=== PATIENT | female | born 1985 | race Caucasian/White ===

== ENCOUNTER 2017-07-27 17:06 | Emergency (ER) | payer MEDICAID ==
[~2017-07-27] VITALS: Ht 160 cm; Wt 65.5 kg
[~2017-07-27 17:06] MED LIST: CYMBALTA 30MG30 MG PO; NIX CREME RINSE60 M1 TP; PAXIL 30MG30 MG PO
[2017-07-27 17:16] VITALS: BP 138/86; TEMP 98.2
[2017-07-27 18:05] LABS: COLLECTION METHOD CLEAN CATCH
[2017-07-27 18:25] LABS: PH 6 (5-8); URINE APPEARANCE Hazy; URINE BACTERIA Rare /hpf; URINE BILIRUBIN Negative (NEGATIVE); URINE BLOOD 3+ (NEGATIVE); URINE COLOR Straw; URINE GLUCOSE Negative (NEGATIVE); URINE KETONE Negative (NEGATIVE); URINE LEUKOCYTE ESTERASE Negative (NEGATIVE); URINE PROTEIN(semi-quant) Negative (NEGATIVE); URINE RBC 0-2 /hpf; URINE UROBILINOGEN Negative (NEGATIVE); URINE WBC 0-2 /hpf
[2017-07-27 19:23] LABS: BASO % 0.3 % (0.0-2.0); EOS # 0.7 (0.0-0.7); EOS % 5.3 % (0-4.0); GRAN # 8.3 (1.4-6.5); GRAN % 60.4 % (42.2-75.2); HEMATOCRIT 41.2 % (37.0-47.0); HEMOGLOBIN 13.2 g/dl (12.5-16.0); LYMPH # 3.5 (1.2-3.4); LYMPH % 25.7 % (20.0-51.0); MEAN CELL VOLUME 90 fl (80.0-100.0); MEAN CORPUSCULAR HEMOGLOBIN 29 pg (27.0-31.0); MEAN CORPUSCULAR HGB CONC 32 g/dl (33.0-37.0); MEAN PLATELET VOLUME 10.3 fl (7.4-10.4); MONO # 1.1 (0.1-0.6); MONO % 7.7 % (1.7-9.3); PLATELET COUNT 274 K/mm3 (130-400); RED BLOOD COUNT 4.59 M/mm3 (4.10-5.30); WHITE BLOOD COUNT 13.8 K/mm3 (4.8-10.8)
[2017-07-27 19:31] LABS: ALANINE AMINOTRANSFERASE 19 U/L (9-52); ALBUMIN 4.4 gm/dL (3.5-5.0); ALKALINE PHOSPHATASE 70 U/L (50-136); ANION GAP 11 mmol/L (7-16); BILIRUBIN,TOTAL 0.5 mg/dL (0.0-1.0); BLOOD UREA NITROGEN 11 mg/dL (7-17); CALCIUM 9.3 mg/dL (8.4-10.2); CARBON DIOXIDE 23 mmol/L (22-30); CHLORIDE 103 mmol/L (98-107); CREATININE, serum 0.65 mg/dL (0.52-1.25); GLUCOSE 74 mg/dL (74-106); POTASSIUM 3.9 mmol/L (3.4-5.0); SODIUM 138 mmol/L (137-145); TOTAL PROTEIN 7.8 gm/dL (6.4-8.2)
[2017-07-27 19:34] LABS: C-REACTIVE PROTEIN < 0.5 mg/dL (0.0-0.9)
[2017-07-27] MEDS ORDERED: CEFTIN 250250 MG/TAB PO (20:16)
[2017-07-27] MEDS ORDERED: NORCO 325 MG-51 TAB PO (20:16)
[2017-07-27] MEDS ORDERED: PYRIDIUM200 M1 PO (20:16)
[2017-07-27 20:25] VITALS: PULSE 82
== END 2017-07-27 20:25 | disposition home or self-care (01) ==
LOC: COL.ER 17:06
PROVIDERS: Physician Assistant
DX: R10.32 Left lower quadrant pain (principal); R31.9 Hematuria, unspecified; Z87.442 Personal history of urinary calculi; R63.0 Anorexia
CPT/HCPCS: J0696; J1885; J7030

== ENCOUNTER 2018-07-31 13:51 | Emergency (ER) | payer MEDICAID ==
[~2018-07-31] VITALS: Ht 160 cm; Wt 61.4 kg
[~2018-07-31 13:51] MED LIST changes: +CEFTIN 250250 MG/TAB PO; +NORCO 325 MG-51 TAB PO; +PYRIDIUM200 M1 PO
[2018-07-31 13:53] VITALS: TEMP 98.7
[2018-07-31] MEDS ORDERED: TYLENOL 500MG500 MG PO (14:01)
[2018-07-31] MEDS ORDERED: ADVIL200 MG PO (14:01)
[2018-07-31] MEDS ORDERED: MULTIPLE VITAMI1 TA5 PO (14:02)
[2018-07-31 14:27] LABS: BASO % 0.2 % (0.0-2.0); EOS # 0.3 (0.0-0.7); EOS % 3.1 % (0-4.0); GRAN # 6.8 (1.4-6.5); GRAN % 64.3 % (42.2-75.2); HEMATOCRIT 37.6 % (37.0-47.0); LYMPH # 2.5 (1.2-3.4); LYMPH % 23.1 % (20.0-51.0); MEAN CELL VOLUME 87 fl (80.0-100.0); MEAN CORPUSCULAR HEMOGLOBIN 28 pg (27.0-31.0); MEAN CORPUSCULAR HGB CONC 32 g/dl (33.0-37.0); MEAN PLATELET VOLUME 10.4 fl (7.4-10.4); MONO # 0.9 (0.1-0.6); MONO % 8.9 % (1.7-9.3); PLATELET COUNT 298 K/mm3 (130-400); RED BLOOD COUNT 4.33 M/mm3 (4.10-5.30); REDCELL DISTRIBUTION WIDTH-CV 14.9 % (11.5-14.5)
[2018-07-31 14:40] LABS: ALBUMIN 3.7 gm/dL (3.5-5.0); BILIRUBIN,TOTAL 0.5 mg/dL (0.0-1.0); C-REACTIVE PROTEIN 0.6 mg/dL (0.0-0.9); CALCIUM 8.9 mg/dL (8.4-10.2); CREATININE, serum 0.54 mg/dL (0.52-1.25); POTASSIUM 3.8 mmol/L (3.4-5.0); TOTAL PROTEIN 6.5 gm/dL (6.4-8.2)
[2018-07-31 15:27] LABS: COLLECTION METHOD CLEAN CATCH
[2018-07-31 15:33] LABS: MUCOUS Present /lpf; PH 7 (5-8); URINE APPEARANCE Hazy; URINE BACTERIA Rare /hpf; URINE BILIRUBIN Negative (NEGATIVE); URINE BLOOD Negative (NEGATIVE); URINE COLOR Yellow; URINE GLUCOSE Negative (NEGATIVE); URINE KETONE Trace (NEGATIVE); URINE LEUKOCYTE ESTERASE Negative (NEGATIVE); URINE NITRATE Negative (NEGATIVE); URINE PROTEIN(semi-quant) 1+ (NEGATIVE); URINE RBC 0-2 /hpf
[2018-07-31 15:52] VITALS: BP 121/73; PULSE 71
== END 2018-07-31 16:08 | disposition home or self-care (01) ==
LOC: COL.ER 13:51
PROVIDERS: Physician Assistant
DX: R51 Headache (principal); N18.9 Chronic kidney disease, unspecified; M79.7 Fibromyalgia; F17.210 Nicotine dependence, cigarettes, uncomplicated; Z98.890 Other specified postprocedural states; Z98.51 Tubal ligation status
CPT/HCPCS: J1170; J2405; J7030

== ENCOUNTER → 2018-09-08 | Outpatient (CLI) | payer MEDICAID ==
[~2018-09-08] MED LIST changes: +ADVIL200 MG PO; +MULTIPLE VITAMI1 TA5 PO; +TYLENOL 500MG500 MG PO
== END ==
LOC: ZCOL.LAB 10:20
DX: M62.81 Muscle weakness (generalized) (principal)

== ENCOUNTER 2019-01-26 14:49 | Emergency (ER) | payer MEDICAID ==
[~2019-01-26] VITALS: Ht 160 cm; Wt 61.4 kg
[2019-01-26 15:04] VITALS: TEMP 98.7
[2019-01-26] MEDS ORDERED: CYMBALTA 30MG30 MG PO (15:18)
[2019-01-26] MEDS ORDERED: CHANTIX 1MG1 MG PO (15:18)
[2019-01-26 15:50] LABS: COLLECTION METHOD CLEAN CATCH
[2019-01-26 16:00] LABS: BASO % 0.3 % (0.0-2.0); EOS # 0.3 (0.0-0.7); EOS % 2.9 % (0-4.0); GRAN # 6.7 (1.4-6.5); GRAN % 61.5 % (42.2-75.2); HEMATOCRIT 37.9 % (37.0-47.0); HEMOGLOBIN 12.5 g/dl (12.5-16.0); LYMPH # 2.8 (1.2-3.4); LYMPH % 25.9 % (20.0-51.0); MEAN CELL VOLUME 87 fl (80.0-100.0); MEAN CORPUSCULAR HEMOGLOBIN 29 pg (27.0-31.0); MEAN CORPUSCULAR HGB CONC 33 g/dl (33.0-37.0); MEAN PLATELET VOLUME 10.4 fl (7.4-10.4); PLATELET COUNT 275 K/mm3 (130-400); RED BLOOD COUNT 4.38 M/mm3 (4.10-5.30); REDCELL DISTRIBUTION WIDTH-CV 13.5 % (11.5-14.5)
[2019-01-26 16:04] LABS: PH 6 (5-8); SQUAMOUS EPITHELIAL 0-2 /hpf; URINE APPEARANCE Clear; URINE BACTERIA None Seen /hpf; URINE BILIRUBIN Negative (NEGATIVE); URINE BLOOD Negative (NEGATIVE); URINE COLOR Straw; URINE GLUCOSE Negative (NEGATIVE); URINE KETONE Negative (NEGATIVE); URINE LEUKOCYTE ESTERASE Negative (NEGATIVE); URINE NITRATE Negative (NEGATIVE); URINE PROTEIN(semi-quant) Negative (NEGATIVE); URINE RBC 0-2 /hpf; URINE UROBILINOGEN Negative (NEGATIVE)
[2019-01-26 16:08] LABS: ALANINE AMINOTRANSFERASE 9 U/L (9-52); ALBUMIN 4.3 gm/dL (3.5-5.0); ALKALINE PHOSPHATASE 66 U/L (50-136); ANION GAP 9 mmol/L (7-16); AST,SGOT 21 U/L (15-37); BILIRUBIN,TOTAL 0.2 mg/dL (0.0-1.0); BLOOD UREA NITROGEN 8 mg/dL (7-17); C-REACTIVE PROTEIN 0.6 mg/dL (0.0-0.9); CALCIUM 9.4 mg/dL (8.4-10.2); CARBON DIOXIDE 25 mmol/L (22-30); CHLORIDE 105 mmol/L (98-107); CREATININE, serum 0.55 (0.52-1.25); GLUCOSE 84 mg/dL (74-106); SODIUM 139 mmol/L (137-145); TOTAL PROTEIN 7.6 gm/dL (6.4-8.2)
[2019-01-26 16:17] LABS: TROPONIN-I < 0.012 ng/mL (0.000-0.035)
[2019-01-26 16:28] LABS: ERYTHROCYTE SEDIMENTATION RATE 7 mm/hr (0-20)
[2019-01-26 17:55] VITALS: BP 161/90; PULSE 70
== END 2019-01-26 17:57 | disposition home or self-care (01) ==
LOC: COL.ER 14:49
PROVIDERS: Emergency Medicine
DX: M54.5 Low back pain (principal); R32 Unspecified urinary incontinence; I10 Essential (primary) hypertension; G89.29 Other chronic pain; F17.210 Nicotine dependence, cigarettes, uncomplicated; M79.7 Fibromyalgia

== ENCOUNTER 2019-02-08 13:45 | Outpatient (RCR) | payer MEDICAID ==
[~2019-02-08 13:45] MED LIST changes: +CHANTIX 1MG1 MG PO
== END 2019-02-13 | disposition home or self-care (01) ==
LOC: MKS.ESL.PT
DX: M54.5 Low back pain (principal); M54.2 Cervicalgia; G89.29 Other chronic pain

== ENCOUNTER 2019-05-15 19:58 | Emergency (ER) | payer MEDICAID ==
[~2019-05-15] VITALS: Ht 160 cm; Wt 56.4 kg
[2019-05-15 20:00] VITALS: BP 180/117; PULSE 139; TEMP 97.9
== END 2019-05-15 20:32 | disposition left against medical advice (07) ==
LOC: COL.ER 19:58
DX: F29 Unspecified psychosis not due to a substance or known physiological condition (principal); M79.7 Fibromyalgia

== ENCOUNTER 2019-05-16 01:58 | Emergency (ER) | payer MEDICAID ==
[~2019-05-16] VITALS: Ht 154.9 cm; Wt 63.6 kg
[2019-05-16 02:09] VITALS: TEMP 97.8
[2019-05-16 02:25] LABS: COLLECTION METHOD CLEAN CATCH
[2019-05-16 02:34] LABS: MUCOUS Present /lpf; PH 6 (5-8); SQUAMOUS EPITHELIAL 20-50 /hpf; URINE APPEARANCE Cloudy; URINE BACTERIA Rare /hpf; URINE BILIRUBIN Negative (NEGATIVE); URINE BLOOD Negative (NEGATIVE); URINE COLOR Yellow; URINE GLUCOSE Negative (NEGATIVE); URINE KETONE 1+ (NEGATIVE); URINE LEUKOCYTE ESTERASE Negative (NEGATIVE); URINE NITRATE Negative (NEGATIVE); URINE PROTEIN(semi-quant) 1+ (NEGATIVE); URINE UROBILINOGEN Negative (NEGATIVE)
[2019-05-16 02:39] LABS: TRICYCLIC ANTIDEPRESS URINE NEGATIVE
[2019-05-16 02:40] LABS: BASO % 0.2 % (0.0-2.0); EOS # 0.1 (0.0-0.7); EOS % 0.4 % (0-4.0); GRAN # 8.8 (1.4-6.5); GRAN % 77.9 % (42.2-75.2); HEMOGLOBIN 12.1 g/dl (12.5-16.0); LYMPH # 1.4 (1.2-3.4); LYMPH % 12.3 % (20.0-51.0); MEAN CELL VOLUME 85 fl (80.0-100.0); MEAN CORPUSCULAR HEMOGLOBIN 28 pg (27.0-31.0); MEAN CORPUSCULAR HGB CONC 33 g/dl (33.0-37.0); MEAN PLATELET VOLUME 10.3 fl (7.4-10.4); MONO % 8.8 % (1.7-9.3); PLATELET COUNT 310 K/mm3 (130-400); RED BLOOD COUNT 4.34 M/mm3 (4.10-5.30); REDCELL DISTRIBUTION WIDTH-CV 14.6 % (11.5-14.5)
[2019-05-16 02:51] LABS: ALANINE AMINOTRANSFERASE 10 U/L (9-52); ALBUMIN 4.5 gm/dL (3.5-5.0); ALKALINE PHOSPHATASE 70 U/L (50-136); ANION GAP 11 mmol/L (7-16); AST,SGOT 20 U/L (15-37); BILIRUBIN,TOTAL 0.6 mg/dL (0.0-1.0); BLOOD UREA NITROGEN 10 mg/dL (7-17); CALCIUM 9.6 mg/dL (8.4-10.2); CARBON DIOXIDE 24 mmol/L (22-30); CHLORIDE 106 mmol/L (98-107); CREATININE, serum 0.52 (0.52-1.25); GLUCOSE 108 mg/dL (74-106); POTASSIUM 3.8 mmol/L (3.4-5.0); SODIUM 140 mmol/L (137-145); TOTAL PROTEIN 7.7 gm/dL (6.4-8.2)
[2019-05-16 02:56] LABS: ACETAMINOPHEN < 10 ug/mL (10-30); ALCOHOL(ethanol),MEDICAL < 10 mg/dL; SALICYLATE < 1.0 mg/dL
[2019-05-16 03:20] LABS: TSH w REFLEX 0.919 uIU/mL (0.465-4.680)
--- NOTE | 2019-05-16 13:48 | NUR ---
DCF worker, Maren Barba ([phone]) contacts worker and states that patient's children were placed in police protective custody at this time. Worker advised that patient was in the emergency room being watched by [facility] and currently being screened by [facility]. Worker will keep Maren updated on patient's disposition from the emergency room.
[2019-05-16 13:53] LABS: COLLECTION METHOD RANDOM VOIDED
[2019-05-16 14:02] LABS: MUCOUS Present /lpf; PH 6 (5-8); URINE APPEARANCE Clear; URINE BACTERIA None Seen /hpf; URINE BILIRUBIN Negative (NEGATIVE); URINE BLOOD Negative (NEGATIVE); URINE COLOR Yellow; URINE GLUCOSE Negative (NEGATIVE); URINE KETONE 1+ (NEGATIVE); URINE LEUKOCYTE ESTERASE Negative (NEGATIVE); URINE NITRATE Negative (NEGATIVE); URINE PROTEIN(semi-quant) 1+ (NEGATIVE); URINE RBC 0-2 /hpf
[2019-05-16 14:03] LABS: AMORPHOUS CRYSTAL Present /uL
--- NOTE | 2019-05-16 15:31 | NUR ---
personnel worker notified KATT Leon, of current disposition of patient. Maren is on her way to the hospital and will meet with patient. Worker spoke with Candelario Adams and advised of DCF's plan to visit patient and confirmed that patient cannot have contact with her children until after court date.
[2019-05-16 23:40] VITALS: BP 160/92; PULSE 88
== END 2019-05-16 03:38 ==
LOC: COL.ER 01:58
PROVIDERS: Physician Assistant
DX: F22 Delusional disorders (principal); M79.7 Fibromyalgia; F32.9 Major depressive disorder, single episode, unspecified; F41.9 Anxiety disorder, unspecified; F17.210 Nicotine dependence, cigarettes, uncomplicated; Z90.89 Acquired absence of other organs; Z98.51 Tubal ligation status

== ENCOUNTER → 2019-08-16 | Outpatient (CLI) | payer MEDICAID | LOC: ZCOL.LAB 17:02 | DX: Z78.9 Other specified health status (principal) ==

== ENCOUNTER → 2019-08-17 | Outpatient (CLI) | payer MEDICAID | LOC: COL.LAB 14:21 | DX: Z78.9 Other specified health status (principal) ==

== ENCOUNTER 2020-06-05 14:40 | Emergency (ER) | payer MEDICAID ==
[~2020-06-05] VITALS: Ht 160 cm; Wt 68.2 kg
[2020-06-05 14:57] VITALS: TEMP 98.1
[2020-06-05 15:17] LABS: BASO % 0.3 % (0.0-2.0); EOS # 0.6 (0.0-0.7); EOS % 6.3 % (0-4.0); GRAN % 53.5 % (42.2-75.2); HEMATOCRIT 42.5 % (37.0-47.0); HEMOGLOBIN 13.2 g/dl (12.5-16.0); LYMPH # 2.7 (1.2-3.4); LYMPH % 28.3 % (20.0-51.0); MEAN CELL VOLUME 83 fl (80.0-100.0); MEAN CORPUSCULAR HEMOGLOBIN 26 pg (27.0-31.0); MEAN CORPUSCULAR HGB CONC 31 g/dl (33.0-37.0); MEAN PLATELET VOLUME 10.5 fl (7.4-10.4); MONO # 1.1 (0.1-0.6); MONO % 11.2 % (1.7-9.3); PLATELET COUNT 324 K/mm3 (130-400); RED BLOOD COUNT 5.14 M/mm3 (4.10-5.30)
[2020-06-05 15:28] LABS: ALANINE AMINOTRANSFERASE 26 U/L (4-34); ALBUMIN 4.2 gm/dL (3.5-5.0); ALKALINE PHOSPHATASE 82 U/L (50-136); ANION GAP 9 mmol/L (7-16); AST,SGOT 22 U/L (15-37); BILIRUBIN,TOTAL 0.3 mg/dL (0.0-1.0); BLOOD UREA NITROGEN 9 mg/dL (7-17); CALCIUM 9.3 mg/dL (8.4-10.2); CARBON DIOXIDE 25 mmol/L (22-30); CHLORIDE 105 mmol/L (98-107); CREATININE, serum 0.63 (0.52-1.25); GLUCOSE 94 mg/dL (74-106); LIPASE 22 U/L (23-300); POTASSIUM 3.5 mmol/L (3.4-5.0); SODIUM 138 mmol/L (137-145); TOTAL PROTEIN 7.8 gm/dL (6.4-8.2)
[2020-06-05 15:41] LABS: TROPONIN-I < 0.012 ng/mL (0.000-0.035)
[2020-06-05] MEDS ORDERED: ZOFRAN 4MG T4 MG/TAB PO (17:18)
[2020-06-05] MEDS ORDERED: ZITHROMAX 250M250 MG PO (17:18)
[2020-06-05 17:23] VITALS: BP 101/59; PULSE 87
== END 2020-06-05 17:40 | disposition home or self-care (01) ==
LOC: COL.ER 14:40
PROVIDERS: Emergency Medicine
DX: R55 Syncope and collapse (principal)
CPT/HCPCS: J1885; J2405; J7030

== ENCOUNTER → 2020-07-16 | Outpatient (CLI) | payer MEDICAID ==
[~2020-07-16] MED LIST changes: +ZITHROMAX 250M250 MG PO; +ZOFRAN 4MG T4 MG/TAB PO
== END ==
LOC: ZCOL.LAB 17:00
DX: R51.9 Headache, unspecified (principal); Z20.828 Contact with and (suspected) exposure to other viral communicable diseases